=== PATIENT | male | born 1930 | race Caucasian/White ===

== ENCOUNTER 2018-05-05 07:24 | Day surgery (SDC) | payer MEDICARE, BC ==
[2018-04-27 16:27] LABS: BASOPHILS # (AUTO) 0.1 X10'3 (0-0.2); BASOPHILS % (AUTO) 0.7 % (0-1); EOSINOPHILS # (AUTO) 0.3 X10'3 (0-0.9); LYMPHOCYTES % (AUTO) 23.7 % (21-51); MEAN CORPUSCULAR HEMOGLOBIN 27.9 PG (27.0-31.0); MEAN CORPUSCULAR HGB CONC 32.9 % (33.0-36.5); MEAN CORPUSCULAR VOLUME 84.9 FL (78-98); MEAN PLATELET VOLUME 8.4 FL (7.4-10.4); MONOCYTES # (AUTO) 0.7 X10'3 (0-0.9); MONOCYTES % (AUTO) 8.5 % (2-12); NEUTROPHILS # (AUTO) 5.4 X10'3 (1.8-7.7); NEUTROPHILS % (AUTO) 63.1 % (42-75); PRE OP HEMATOCRIT 37.6 % (42.0-52.0); PRE OP HEMOGLOBIN 12.4 g/dL (14.0-17.9); PRE OP PLATELET COUNT 274 X10'3 (140-440); RED BLOOD COUNT 4.42 X10'6 (4.70-6.10); RED CELL DISTRIBUTION WIDTH 14.5 % (11.5-14.5)
[2018-04-27 16:44] LABS: CLARITY,URINE CLEAR (Clear); COLOR,URINE YELLOW (Yellow); GLUCOSE, URINE NEGATIVE (Neg); KETONES,URINE NEGATIVE (Neg); LEUKOCYTE ESTERASE ,URINE NEGATIVE (Neg); NITRITES, URINE NEGATIVE (Neg); OCCULT BLOOD,URINE NEGATIVE (Neg); PH,URINE 5.5 (4.8-8.0); PROTEIN,URINE NEGATIVE (Neg); UROBILINOGEN,URINE 0.2 E.U/dL (0.2-1.0)
[2018-04-27 16:46] LABS: UA COLLECTION TYPE CLN CATCH MIDSTREAM
[2018-04-27 16:47] LABS: ALBUMIN 3.4 G/DL (3.4-5.0); ALBUMIN/GLOBULIN RATIO 0.9 (1.1-1.5); ALKALINE PHOSPHATASE 130 IU/L (46-116); BLOOD UREA NITROGEN 26 MG/DL (7-18); BUN/CREATININE RATIO 23.6 (5.4-32.0); CHLORIDE 102 MMOL/L (99-107); PRE OP ALT 22 U/L (30-65); PRE OP ANION GAP 7 (8-16); PRE OP AST 18 U/L (10-37); PRE OP BILIRUB, TOTAL 0.2 MG/DL (0.0-1.0); PRE OP GLUCOSE 96 MG/DL (70-104); PRE OP POTASSIUM 4.5 MMOL/L (3.4-5.1); PRE OP SODIUM 138 MMOL/L (135-145); TOTAL CARBON DIOXIDE 29.1 MMOL/L (24-32); TOTAL PROTEIN 7.2 G/DL (6.4-8.2); eGFR 63 ML/MIN
[2018-04-27 16:48] LABS: PRE OP PROTIME 22.2 SECONDS (9.0-12.0)
[2018-04-27 16:49] LABS: PRE OP INR 2.2 INR
[2018-04-27 17:01] LABS: HEMOGLOBIN A1C 6.6 % (4.5-6.2)
[2018-05-05] VITALS (11 sets, daily range): BP systolic 86–143; BP diastolic 48–76
[~2018-05-05] VITALS: Ht 172.7 cm; Wt 82.6 kg
[~2018-05-05 07:24] MED LIST: ATEN-27 PO; CALC600T12 PO; DOCUMENT DATE & TIME OF BETA-BLOCKER PO ONE; FERR325T32 PO; FISH OIL PO; FLEC50TA PO; LANTUS SQ; LOSA1TAB41 PO; MAGN400C PO; PHEN100C12 PO; PRAV40TA3 PO; SENN1TAB6 PO; SITA1TAB6 PO; VANCOMYCIN INJ 1000 MG in NORMAL SALINE 250ml IV.SOLN IV ONE; VITC500T PO; WARF10TA50 PO; WARF6TAB49 PO; famotidine 20mg tablet PO ONE; levoFLOXACIN-Levaquin 500mg/D5 100 ML IV ONE; ringers solution, lacted 1,000 ML IV SCH
[2018-05-05] MEDS ORDERED: WARF5TAB PO (08:08)
[2018-05-05] MEDS ORDERED: WARF2.5T PO (08:08)
[2018-05-05] MEDS ORDERED: ringers solution, lacted 1,000 ML IV SCH (08:32)
[2018-05-05] MEDS ORDERED: proCHLORperazine 10 MG/2 ml inj IV PRN (08:35)
[2018-05-05] MEDS ORDERED: ondansetron/PF 4mg/2ml inj IV PRN (08:35)
[2018-05-05] MEDS ORDERED: meperidine/PF 25mg/ml syringe IV PRN ×3 (08:35)
[2018-05-05] MEDS ORDERED: morphine 4 MG/ML inj SYRINge IV PRN ×2 (08:35)
[2018-05-05 09:19] LABS: PARTIAL THROMBOPLASTIN TIME 28 SECONDS (22-32); PROTHROMBIN TIME 10.2 SECONDS (9.0-12.0)
[2018-05-05] MEDS ORDERED: ondansetron/PF 4mg/2ml inj ONE (09:36)
[2018-05-05] MEDS ORDERED: fentaNYL/PF 50MCG/1 ML 2ML syringe ONE (09:39)
[2018-05-05] MEDS ORDERED: BUPIVAcaine/PF 7.5mg/ml (0.75%) 10ml vial ONE (09:41)
[2018-05-05] MEDS ORDERED: MIDAZolam 5mg/5ml vial ONE (09:41)
[2018-05-05] MEDS ORDERED: BUPIVAcaine/PF 2.5mg/ml (0.25%) 10ml vial ONE (10:33)
[2018-05-05] MEDS ORDERED: LIDOcaine 2% (20mg/ml) 5ml vial ONE (10:52)
[2018-05-05] MEDS ORDERED: ePHEDrine 50MG/ML INJ. ONE (11:50)
== END 2018-05-05 14:09 | disposition home or self-care (01) ==
LOC: PAS 07:24
PROVIDERS: ATTEND Orthopaedic Surgery
DX: M70.62 Trochanteric bursitis, left hip (principal); T84.84XA Pain due to internal orthopedic prosthetic devices, implants and grafts, initial encounter; Y83.9 Surgical procedure, unspecified as the cause of abnormal reaction of the patient, or of later complication, without mention of misadventure at the time of the procedure; Y92.9 Unspecified place or not applicable; E11.9 Type 2 diabetes mellitus without complications; M19.90 Unspecified osteoarthritis, unspecified site; I10 Essential (primary) hypertension; I48.2 Chronic atrial fibrillation; E78.5 Hyperlipidemia, unspecified; E66.9 Obesity, unspecified; Z88.0 Allergy status to penicillin; Z96.642 Presence of left artificial hip joint; Z96.641 Presence of right artificial hip joint
CPT/HCPCS: 20680; 27062; 36415; 80053; 81003; 82948; 83036; 85025; 85610; 85730; 86885; 86900; 86901; A6258; A6449; C1758; J1956; J2001; J2250; J2405; J3010; J3370; J3490; J7030; J7120; A6250; A7000